=== PATIENT | female | born 1950 | race Caucasian/White ===

== ENCOUNTER 2019-02-19 06:58 | Day surgery (SDC) | payer MEDICARE, OTHER ==
[2019-02-14 14:40] VITALS: BMI 39.6
[2019-02-19] MEDS: CYCLOPENTOLATE 2% OPHTH SOLN 2 ML BOTTLE ONE ×3 (07:30→07:40)
[2019-02-19] MEDS: PHENYLEPHRINE 2.5% OPHTH SOLN 15 ML BOTTLE ONE ×3 (07:30→07:40)
[2019-02-19] MEDS: CIPROFLOXACIN 0.3% EYE DROPS 5 ML BOTTLE ONE ×3 (07:30→07:40)
[2019-02-19] MEDS: TROPICAMIDE 1% OPHTH SOLN 15 ML BOTTLE ONE ×3 (07:30→07:40)
[2019-02-19] MEDS ORDERED: MIDAZOLAM HCL 2 MG/2 ML SINGLE DOSE VIAL ONE (08:32)
[2019-02-19] MEDS ORDERED: CARBACHOL 0.01% INTRA-OCULAR 1.5 ML VIAL ONE (08:33)
[2019-02-19] MEDS ORDERED: LIDOCAINE 1% P/F 10 MG/ML VIAL ONE (08:33)
[2019-02-19] MEDS ORDERED: BSS (NA/CA/MG/K) BALANCED SALT SOLUTION OPHTH SOLN 15 ML BOTTLE ONE (08:33)
[2019-02-19] MEDS ORDERED: ONDANSETRON 4 MG/2 ML VIAL IVPUSH PRN (08:50)
[2019-02-19] MEDS ORDERED: ACETAMINOPHEN 325 MG TABLET (FP) PO PRN (08:50)
[2019-02-19] MEDS ORDERED: LACTATED RINGERS SOLUTION 1,000 ML IV SCH (09:00)
--- NOTE | 2019-02-19 09:19 | OP ---
DATE OF OPERATION: 02/19/2019 OPERATIVE PROCEDURE: Lens Phacoemulsification with Posterior Chamber Intraocular Lens Placement, Right Eye PREOPERATIVE DIAGNOSIS: Visually Significant Cataract of Right Eye POSTOPERATIVE DIAGNOSIS: Visually Significant Cataract of Right Eye SURGEON: Federico Recinos M.D. ANESTHESIA: MAC PROCEDURE: The patient was brought to the operating room and placed under monitored anesthesia care by Anesthesia. A drop of Tetracaine was then placed over the right eye. The patient was then prepped and draped in the usual sterile manner. A speculum was then placed over the right eye. The eye was then well irrigated with copious amounts of BSS (balanced salt solution). The operating microscope was then moved into position. A paracentesis was performed using a 15 degree blade. At this point 0.5 mL of 1% preservative free-lidocaine was injected into the anterior chamber. Amvisc plus was then injected into the anterior chamber. A clear corneal incision was then formed using a 2.2 mm keratome. A capsulorrhexis was then performed in a continuous circular fashion beginning with a cystotome completed with an Utratas forceps. Hydrodissection was then performed using BSS on a cannula. The phaco probe was then introduced through the corneal wound and the cataract was removed using the phaco chop technique. Approximately 3 seconds of absolute phaco time was used. The remaining cortex was then removed using irrigation and aspiration with an I/A probe. The capsule was then filled with regular Amvisc and the capsule was noted to be intact. A previously selected foldable posterior chamber intraocular lens was then injected into the capsule through the corneal wound using a lens injector. It was then dialed into position using a Sinskey hook. The Amvisc was then removed using irrigation and aspiration. Miostat was then injected through the paracentesis to constrict the pupil. The paracentesis and corneal wound were then hydrated and noted to be water tight. A drop of Maxitrol was then placed over the eye. The speculum was removed and clear shield was taped over the eye. The patient tolerated the procedure well and there were no surgical complications. The patient was asked to follow up in my office the next day. FEDERICO RECINOS M.D. [id number]
[2019-02-19 09:26] VITALS: TEMP 97.5
[2019-02-19 11:35] VITALS: BP 115/74; PULSE 56
== END 2019-02-19 09:50 | disposition home or self-care (01) ==
LOC: FASU 06:58
PROVIDERS: ATTEND Ophthalmology
PROC: 08RJ3JZ Replacement of Right Lens with Synthetic Substitute, Percutaneous Approach (ICD-10-PCS; principal; 2019-02-19 08:51)
DX: H26.8 Other specified cataract (principal)

== ENCOUNTER 2019-03-05 08:26 | Day surgery (SDC) | payer MEDICARE ==
[2019-03-03 15:12] VITALS: BMI 37.8
[2019-03-05] MEDS: CIPROFLOXACIN 0.3% EYE DROPS 5 ML BOTTLE ONE ×3 (09:40→09:50)
[2019-03-05] MEDS: CYCLOPENTOLATE 2% OPHTH SOLN 2 ML BOTTLE ONE ×3 (09:40→09:50)
[2019-03-05] MEDS: PHENYLEPHRINE 2.5% OPHTH SOLN 15 ML BOTTLE ONE ×3 (09:40→09:50)
[2019-03-05] MEDS: TROPICAMIDE 1% OPHTH SOLN 15 ML BOTTLE ONE ×3 (09:40→09:50)
[2019-03-05] MEDS ORDERED: CARBACHOL 0.01% INTRA-OCULAR 1.5 ML VIAL ONE (10:08)
[2019-03-05] MEDS ORDERED: BSS (NA/CA/MG/K) BALANCED SALT SOLUTION OPHTH SOLN 15 ML BOTTLE ONE (10:08)
[2019-03-05] MEDS ORDERED: TETRACAINE 0.5% OPHTH SOLN 2 ML BOTTLE ONE (10:08)
[2019-03-05] MEDS ORDERED: MIDAZOLAM HCL 2 MG/2 ML SINGLE DOSE VIAL ONE ×2 (10:12→10:29)
--- NOTE | 2019-03-05 11:17 | OP ---
DATE OF OPERATION: 03/05/2019 OPERATIVE PROCEDURE: Lens Phacoemulsification with Posterior Chamber Intraocular Lens Placement Left Eye PREOPERATIVE DIAGNOSIS: Visually Significant Cataract of Left Eye POSTOPERATIVE DIAGNOSIS: Visually Significant Cataract of Left Eye SURGEON: Federico Recinos M.D. ANESTHESIA: MAC ANESTHESIOLOGIST: PROCEDURE: The patient was brought to the operating room and placed under monitored anesthesia care by Anesthesia. A drop of Tetracaine was then placed over the left eye. The patient was then prepped and draped in the usual sterile manner. A speculum was then placed over the left eye. The eye was then well irrigated with copious amounts of BSS (balanced salt solution). The operating microscope was then moved into position. A paracentesis was performed using a 15 degree blade. At this point 0.5 mL of 1% preservative-free lidocaine was injected into the anterior chamber. Amvisc plus was then injected into the anterior chamber. A clear corneal incision was then formed using a 2.2 mm keratome. A capsulorrhexis was then performed in a continuous circular fashion beginning with a cystotome, completed with an Utratas forceps. Hydrodissection was then performed using BSS on a cannula. The phaco probe was then introduced through the corneal wound and the cataract was removed using the phaco chop technique. Approximately 3 seconds of absolute phaco time was used. The remaining cortex was then removed using irrigation and aspiration with an I/A probe. The capsule was then filled with regular Amvisc and the capsule was noted to be intact. A previously selected foldable posterior chamber intraocular lens was then injected into the capsule through the corneal wound using a lens injector. It was then dialed into position using a Sinskey hook. The Amvisc was then removed using irrigation and aspiration. Miostat was then injected through the paracentesis to constrict the pupil. The paracentesis and corneal wound were then hydrated and noted to be water tight. A drop of Maxitrol was then placed over the eye. The speculum was removed and clear shield was taped over the eye. The patient tolerated the procedure well and there were no surgical complications. The patient was asked to follow up in my office the next day. FEDERICO RECINOS M.D. [id number]
[2019-03-05 11:22] VITALS: TEMP 97.8
[2019-03-05 11:31] VITALS: BP 160/78; PULSE 72
== END 2019-03-05 11:31 | disposition home or self-care (01) ==
LOC: FASU 08:26
PROVIDERS: ATTEND Ophthalmology
PROC: 08RK3JZ Replacement of Left Lens with Synthetic Substitute, Percutaneous Approach (ICD-10-PCS; principal; 2019-03-05 10:24)
DX: H26.8 Other specified cataract (principal)

== ENCOUNTER 2023-05-01 07:43 | Emergency (ER) | payer MEDICARE, OTHER ==
[2023-05-01 08:01] VITALS: RESP 16; TEMP 98.3; BMI 38.7
[2023-05-01 09:19] LABS: ALBUMIN 3.3 g/dl (3.4-5.0); BILIRUBIN,TOTAL 0.5 mg/dl (0.2-1); CALCIUM 8.7 mg/dl (8.5-10); CREATININE 0.6 mg/dl (0.55-1.3); HEMATOCRIT 30.9 % (32.4-45.2); HEMOGLOBIN 10.2 G/dL (10.7-15.3); MCH 23.8 pg (25.7-33.7); MCHC 32.9 g/dl (32.0-36.0); MEAN CELL VOLUME 72.3 fl (80-96); MEAN PLT VOLUME 9.6 fl (7.5-11.1); PLATELET COUNT 172.3 10^3/uL (134-434); RBC 4.27 10^6/uL (3.60-5.2); RDW 20.7 % (11.6-15.6); TOT PROT 6.2 g/dl (6.4-8.2); WHITE BLOOD COUNT 5.5 10^3/uL (4.0-10.8)
[2023-05-01] MEDS ORDERED: ACETAMINOPHEN 325 MG TABLET (FP) PO ONE (09:28)
[2023-05-01 09:33] LABS: PLATELET ESTIMATE ADEQUATE
[2023-05-01] MEDS ORDERED: ACETAMINOPHEN 325 MG TABLET (FP) ONE (09:37)
[2023-05-01 09:44] VITALS: BP 132/76; PULSE 57
[2023-05-01 11:04] LABS: N-TERMINAL BNP 104.1 pg/ml (5-125)
== END 2023-05-01 09:57 | disposition home or self-care (01) ==
LOC: FER 07:43
DX: I10 Essential (primary) hypertension (principal); R51.9 Headache, unspecified; R42 Dizziness and giddiness; R06.02 Shortness of breath
CPT/HCPCS: 36415; 70450-TC; 71046-TC-FY; 80053; 83880; 84484; 85027; 93005; 99285-25

== ENCOUNTER 2023-09-17 11:46 | Inpatient (IN) | payer MEDICARE, OTHER ==
[2023-09-17 12:06] VITALS: BMI 27.1
[2023-09-17] MEDS ORDERED: ONDANSETRON 4 MG TABLET PO ONE (12:44)
[2023-09-17] MEDS ORDERED: MECLIZINE HCL 25 MG TABLET (FP) PO ONE (12:44)
[2023-09-17] MEDS ORDERED: MECLIZINE HCL 25 MG TABLET (FP) ONE (12:51)
[2023-09-17] MEDS ORDERED: ONDANSETRON *ODT* 4 MG TABLET ONE (12:51)
[2023-09-17 13:31] LABS: HEMATOCRIT 36.8 % (32.4-45.2); HEMOGLOBIN 11.7 G/dL (10.7-15.3); MCH 23.2 pg (25.7-33.7); MCHC 31.9 g/dl (32.0-36.0); MEAN CELL VOLUME 72.7 fl (80-96); MEAN PLT VOLUME 10.2 fl (7.5-11.1); PLATELET COUNT 171.5 10^3/uL (134-434); RBC 5.06 10^6/uL (3.60-5.2); WHITE BLOOD COUNT 5.8 10^3/uL (4.0-10.8)
[2023-09-17 14:16] LABS: ANISOCYTOSIS 2+; OVALOCYTE 2+; TARGET CELLS 1+; TEAR DROP CELLS 1+
[2023-09-17 14:18] LABS: PLATELET ESTIMATE ADEQUATE
[2023-09-17 14:22] LABS: ALBUMIN 3.5 g/dl (3.4-5.0); ALK PHOS 323 U/L (45-117); ANION GAP 10 mmol/L (4-13); BILIRUBIN,TOTAL 4.3 mg/dl (0.2-1); CALCIUM 9.1 mg/dl (8.5-10.1); CHLORIDE 101 mmol/L (98-107); CO2 27 mmol/L (21-32); GLUCOSE,RANDOM 137 mg/dl (74-106); POTASSIUM 4.2 mmol/L (3.5-5.1); SGOT/AST 2396 U/L (15-37); SGPT/ALT 2196 U/L (7-52); SODIUM 138 mmol/L (136-145); TOT PROT 6.9 g/dl (6.4-8.2)
[2023-09-17 17:46] LABS: INR 1.25 (0.83-1.09); PROTHROMBIN TIME (PATIENT) 14.5 SEC (9.7-13.0)
[2023-09-17] MEDS ORDERED: DEXTROSE 5%-0.45% SALINE 1,000 ML IV SCH (23:45)
[2023-09-18] MEDS: METOPROLOL TARTRATE 50 MG TABLET (FP) PO SCH ×2 (09:30→21:35)
[2023-09-18] MEDS: PANTOPRAZOLE SODIUM 40 MG VIAL IVPUSH SCH (09:31)
[2023-09-18 09:33] LABS: INR 1.3 (0.83-1.09)
[2023-09-18 09:49] LABS: CALCIUM 8.3 mg/dl (8.5-10.1); CREATININE 0.9 mg/dl (0.6-1.3); POTASSIUM 3.7 mmol/L (3.5-5.1); TOT PROT 5.9 g/dl (6.4-8.2)
[2023-09-18 14:26] LABS: HEMATOCRIT 32.3 % (32.4-45.2); HEMOGLOBIN 10.1 GM/dL (10.7-15.3); MCH 22.1 pg (25.7-33.7); MCHC 31.2 g/dl (32.0-36.0); MEAN CELL VOLUME 70.9 fl (80-96); MEAN PLT VOLUME 10.9 fl (7.5-11.1); PLATELET COUNT 166 10^3/uL (134-434); RBC 4.56 M/mm3 (3.60-5.2); RDW 21.9 % (11.6-15.6)
[2023-09-18 14:29] LABS: WHITE BLOOD COUNT 3.9 K/mm3 (4.0-10.0)
[2023-09-18 14:58] LABS: ANISOCYTOSIS 3+; MACROCYTOSIS 0
[2023-09-18 18:30] LABS: HEPATITIS B SURFACE AG CONFIRM CONFIRMED (NONREACTIVE)
[2023-09-18 20:35] LABS: URINE BARBITURATES NEGATIVE (NEGATIVE)
[2023-09-18 20:36] LABS: PHENCYCLIDINE,URINE NEGATIVE (NEGATIVE); URINE BENZODIAZEPINES NEGATIVE (NEGATIVE)
[2023-09-18 20:38] LABS: URINE AMPHETAMINES NEGATIVE (NEGATIVE)
[2023-09-18 20:58] LABS: COCAINE, UR NEGATIVE (NEGATIVE); METHADONE, UR NEGATIVE (NEGATIVE); OPIATES, URI NEGATIVE (NEGATIVE)
[2023-09-19 09:04] LABS: ALBUMIN 2.9 g/dl (3.4-5.0); CALCIUM 8.3 mg/dl (8.5-10.1); CREATININE 0.8 mg/dl (0.6-1.3); POTASSIUM 3.8 mmol/L (3.5-5.1); TOT PROT 5.9 g/dl (6.4-8.2)
[2023-09-19] MEDS: METOPROLOL TARTRATE 50 MG TABLET (FP) PO SCH ×2 (09:21→21:52)
[2023-09-19] MEDS: PANTOPRAZOLE SODIUM 40 MG VIAL IVPUSH SCH (09:21)
[2023-09-19 11:49] LABS: BASO % 0.9 % (0-2.0); EOS % 0.4 % (0-4.5); HEMATOCRIT 31.4 % (32.4-45.2); LYMPH % 33.2 % (8-40); MCH 22.2 pg (25.7-33.7); MCHC 31.9 g/dl (32.0-36.0); MEAN CELL VOLUME 69.6 fl (80-96); MEAN PLT VOLUME 10.5 fl (7.5-11.1); MONO % 15.3 % (3.8-10.2); NEUT % 50.2 % (42.8-82.8); PLATELET COUNT 146 10^3/uL (134-434); RBC 4.51 M/mm3 (3.60-5.2); RDW 21.9 % (11.6-15.6)
[2023-09-19 12:20] LABS: ANISOCYTOSIS 3+; MACROCYTOSIS 0
[2023-09-19] MEDS: DOCUSATE SODIUM 100 MG CAPSULE (FP) PO SCH ×2 (18:04→21:51)
[2023-09-19] MEDS: POLYETHYLENE GLYCOL (HEALTHYLAX) 3350 17 GM PACKET PO SCH ×2 (18:04→21:51)
[2023-09-20] MEDS: DOCUSATE SODIUM 100 MG CAPSULE (FP) PO SCH ×3 (06:36→21:38)
[2023-09-20 09:07] LABS: INR 1.3 (0.83-1.09)
[2023-09-20 09:30] LABS: BILIRUBIN,TOTAL 4.4 mg/dl (0.2-1); CALCIUM 8.6 mg/dl (8.5-10.1); CREATININE 0.7 mg/dl (0.6-1.3); POTASSIUM 4.3 mmol/L (3.5-5.1)
[2023-09-20] MEDS: METOPROLOL TARTRATE 50 MG TABLET (FP) PO SCH ×2 (10:53→21:38)
[2023-09-20] MEDS: POLYETHYLENE GLYCOL (HEALTHYLAX) 3350 17 GM PACKET PO SCH ×2 (10:54→21:38)
[2023-09-20] MEDS: PANTOPRAZOLE SODIUM 40 MG VIAL IVPUSH SCH (10:54)
[2023-09-20 23:06] LABS: HCV ALPHA 2 MACRO CHART 278 mg/dL (110-276)
[2023-09-21] MEDS: DOCUSATE SODIUM 100 MG CAPSULE (FP) PO SCH ×2 (05:55→14:23)
[2023-09-21 08:57] LABS: BILIRUBIN,TOTAL 5.2 mg/dl (0.2-1); CALCIUM 8.8 mg/dl (8.5-10.1); CREATININE 0.8 mg/dl (0.6-1.3)
[2023-09-21 10:15] LABS: BASO % 0.6 % (0-2.0); EOS % 0.5 % (0-4.5); HEMATOCRIT 31.2 % (32.4-45.2); HEMOGLOBIN 10.1 GM/dL (10.7-15.3); LYMPH % 35.6 % (8-40); MCH 22.4 pg (25.7-33.7); MCHC 32.6 g/dl (32.0-36.0); MEAN CELL VOLUME 68.9 fl (80-96); MEAN PLT VOLUME 10.3 fl (7.5-11.1); MONO % 14.1 % (3.8-10.2); NEUT % 49.2 % (42.8-82.8); PLATELET COUNT 136 10^3/uL (134-434); RBC 4.53 M/mm3 (3.60-5.2); WHITE BLOOD COUNT 3.9 K/mm3 (4.0-10.0)
[2023-09-21 10:16] VITALS: BP 126/65; PULSE 77; RESP 18; TEMP 98
[2023-09-21] MEDS: METOPROLOL TARTRATE 50 MG TABLET (FP) PO SCH (10:50)
[2023-09-21] MEDS: POLYETHYLENE GLYCOL (HEALTHYLAX) 3350 17 GM PACKET PO SCH (10:50)
[2023-09-21] MEDS: PANTOPRAZOLE SODIUM 40 MG VIAL IVPUSH SCH (10:50)
[2023-09-21] MEDS ORDERED: MAGNESIUM CITRATE 300 ML BOTTLE PO ONE (12:00)
== END 2023-09-21 13:29 | disposition home or self-care (01) | DRG 442 ==
LOC: FER 11:46 → FM/S 18:10
PROVIDERS: ADMIT Internal Medicine
DX: B17.8 Other specified acute viral hepatitis (principal); R17 Unspecified jaundice; R74.01 Elevation of levels of liver transaminase levels; R42 Dizziness and giddiness; E78.5 Hyperlipidemia, unspecified; I10 Essential (primary) hypertension; E11.9 Type 2 diabetes mellitus without complications; K21.9 Gastro-esophageal reflux disease without esophagitis; I25.10 Atherosclerotic heart disease of native coronary artery without angina pectoris; T38.3X5A Adverse effect of insulin and oral hypoglycemic [antidiabetic] drugs, initial encounter; E66.9 Obesity, unspecified; Z68.27 Body mass index [BMI] 27.0-27.9, adult; Z95.5 Presence of coronary angioplasty implant and graft
CPT/HCPCS: 36415; 74181-TC; 76705-TC; 80053; 80307; 82172; 82248; 82550; 82553; 82962; 82977; 83010; 83883; 84460; 84484; 85025; 85027; 85610; 86665; 86704; 86705; 86708; 86709; 86850; 86900; 86901; 87340; 87350; 87517; 93005; 99285-25

== ENCOUNTER 2025-02-18 11:06 | Emergency (ER) | payer MEDICARE, OTHER ==
[2025-02-18 11:14] VITALS: RESP 18; BMI 39.0
[2025-02-18 12:02] LABS: INR 1.23 (0.83-1.09); PROTHROMBIN TIME (PATIENT) 13.9 SEC (9.7-13.0)
[2025-02-18 12:04] LABS: ACTIVATED PTT 28.5 SECONDS (25.2-36.5)
[2025-02-18 12:11] LABS: HEMATOCRIT 29.7 % (34.1-44.9); HEMOGLOBIN 8.5 g/dL (11.2-15.7); MCHC 28.6 g/dl (32.2-35.5); MEAN CELL VOLUME 68.3 fl (79.4-94.8); PLATELET COUNT # 280 x10^3/uL (182-369); RDW 20.7 % (12.4-16.6)
[2025-02-18 12:19] LABS: ALBUMIN 3.7 g/dl (3.4-5.0); ALK PHOS 103 U/L (45-117); ANION GAP 12 mmol/L (4-13); CALCIUM 9.1 mg/dl (8.5-10.1); CHLORIDE 103 mmol/L (98-107); CO2 21 mmol/L (21-32); CREATININE 0.9 mg/dl (0.6-1.3); GLUCOSE,RANDOM 283 mg/dl (74-106); POTASSIUM 4.5 mmol/L (3.5-5.1); SGOT/AST 25 U/L (15-37); SGPT/ALT 26 U/L (7-52); SODIUM 136 mmol/L (136-145); TOT PROT 6.1 g/dl (6.4-8.2)
[2025-02-18 13:44] LABS: N-TERMINAL BNP 455.6 pg/ml (5-125)
[2025-02-18 15:10] LABS: HCV DIAGNOSTIC IN-HOUSE W/RFLX NON-REACTIVE (NONREACTIVE)
[2025-02-18 15:11] LABS: HIV INTERPRETATION NEGATIVE (NEGATIVE)
[2025-02-18 16:53] LABS: EPITHELIAL CELLS 21-50 /hpf
[2025-02-18 16:54] VITALS: BP 133/78; PULSE 88; TEMP 98.2
== END 2025-02-18 17:19 | disposition short-term general hospital (02) ==
LOC: FER 11:06
DX: I48.91 Unspecified atrial fibrillation (principal); J90 Pleural effusion, not elsewhere classified; R06.02 Shortness of breath; R55 Syncope and collapse; R60.0 Localized edema; R42 Dizziness and giddiness
CPT/HCPCS: 0241U-QW; 36415; 70450-TC; 71045-TC-FY; 71275-TC; 74174-TC; 80053; 81003; 81015; 83880; 84484; 85025; 85610; 85730; 86803; 86850; 86900; 86901; 87086; 87389; 93005; 99285-25; Q9967